=== PATIENT | female | born 1980 | race Caucasian/White ===

== ENCOUNTER → 2020-07-31 17:08 | Outpatient (BNVA) | payer SELFPAY | PROVIDERS: Family Provider Nurse Practitioner; Visit Provider Nurse Practitioner Family | DX: M25.572 Pain in left ankle and joints of left foot (principal) | CPT/HCPCS: 73630 ==

== ENCOUNTER 2020-08-28 21:03 | Emergency (ER) | payer SELFPAY ==
[2020-08-28 21:07] VITALS: BP 137/92; PULSE 107; RESP 18; TEMP 36.8; O2SAT 97; BMI 40.4
--- NOTE | 2020-08-28 21:36 | PC.NURSE ---
pt given urine cup, pt states she has not been able to use the restroom because she is scared of the pain. Pt states she has also not been able to eat or drink much.
--- NOTE | 2020-08-28 22:29 | W.ED.FEMALGU ---
HPI - Female Genitourinary General: Chief complaint: Urogenital-Female Stated complaint: YEAST INF, WORSENING SYMPTOMS Time Seen by Provider: 08/28/20 21:33 History of Present Illness: HPI Narrative: 40-year-old female patient presents to the emergency department with vaginal discharge and swelling. She reports change of detergent approximately 1 week ago. Onset of valvular swelling and edema with cloudy discharge. She reports intense itching at first but now intense pain, worse with urination. She is sexually active, one partner past 3 years. She denies flank pain, lower abdominal pain, fever or chills. States has been to her primary care provider today, prescribed fluconazole. She is also attempted [id number] cream for candidal infection. MD elicited complaint: dysuria, vaginal discharge and genital itching Pertinent past history: other (Partial hysterectomy) Onset (ago): day(s) (3) Location of symptoms: external genitalia and vaginal Severity: moderate Severity scale (1-10): 8 Quality of pain: burning and aching Consistency: constant and progressively worsening Vaginal discharge: white and thick/cheesy Vaginal bleeding: none Urinary symptoms: Dysuria Exacerbating factors: movement Relieving factors: none Associated symptoms: Reports no associated symptoms and vaginal discharge; Deny abdominal pain, headache(s) or nausea Treatment prior to arrival: other (Diflucan) Sexual activity: Yes Patient : No Review of Systems General: Reports: 10 or more systems reviewed and unremarkable except in HPI and below Const: Denies: fever(s), chills or diaphoresis Eyes: Denies: blurry vision or eye redness ENMT: Denies: throat pain, dental pain or disequilibrium Card: Denies: chest pain, palpitations or irregular heart rhythm Resp: Denies: dyspnea, productive cough, non-productive cough or wheezing GI: Denies: abdominal pain, nausea or vomiting : Reports: dysuria, genital pruritis and vaginal discharge; Denies: difficulty voiding Musc: Denies: back pain Skin/Breast: Denies: rash or pruritus Neuro: Denies: headache(s), weakness in extremities or behavioral changes Psych: Reports: anxiety and depression Jose David/Lymph: Denies: easy bruising Physical Exam Const: COMMON NORMALS: no acute distress, patient oriented x3, healthy appearing and alert GENERAL APPEARANCE: cooperative, comfortable and well hydrated HENMT: COMMON NORMALS: normocephalic, Normal external nose present and moist oral mucous membranes HEAD & SCALP: normocephalic NOSE: Normal external nose present Eye: COMMON NORMALS: Equal, round and reactive pupils present and EOMs intact bilaterally GENERAL EYE: appearance normal, both eyes and all related structures PUPIL: Yes Equal, round and reactive pupils present Neck/C-Spine: COMMON NORMALS: full ROM and no lymphadenopathy GENERAL: Yes normal visual inspection and Yes trachea midline CERVICAL SPINE: Yes cervical ROM normal Lymph: LYMPHATIC: no lymphadenopathy noted Chest: COMMONS NORMALS: normal inspection of the chest Resp: COMMON NORMALS: normal respiratory effort and clear to auscultation bilaterally AUSCULTATION: clear to auscultation bilaterally Cardio: COMMON NORMALS: regular rhythm, S1 normal heart sound present and S2 normal heart sound present RHYTHM: regular rhythm HEART SOUNDS: S1 normal heart sound present and S2 normal heart sound present GI: COMMON NORMALS: Soft to palpation and non-tender INSPECTION: Yes normal to inspection PALPATION: Yes Soft to palpation : COMMON NORMALS: Yes no CVA tenderness BLADDER/KIDNEY EXAM: Yes bladder normal to palpation and Yes no CVA tenderness EXTERNAL FEMALE EXAM: Yes normal appearance of the urethra, No Inguinal lymphadenopathy, Yes external swelling and No lesion SPECULUM EXAM - VAGINA: Yes erythematous, No laceration, Yes swelling and Yes Vaginal discharge present Vaginal discharge present: white SPECULUM EXAM - CERVIX: Yes Cervix absent BIMANUAL EXAM - VAGINA & UTERUS: Yes bladder normal to palpation BIMANUAL EXAM - ADNEXA, OTHER: Yes normal Back/Pelvis: COMMON NORMALS: no CVA tenderness and thoracic and lumbar spine normal to inspection Extremity: COMMON NORMALS: normal to inspection and capillary refill normal Neuro: COMMON NORMALS: patient oriented x3 and no focal motor deficits SENSORIUM/ORIENTATION: Yes alert Psych: COMMON NORMALS: mental status grossly normal, Normal thought process present and cooperative ACTIVITY/MOTOR BEHAVIOR: Yes appropriate eye contact THOUGHT PROCESS: Normal thought process present Skin: COMMON NORMALS: no rashes or lesions noted and turgor normal GENERAL SKIN EXAM: no rashes or lesions noted and turgor normal Course Vital Signs: Vital signs: Vital Signs Temperature 98.3 F 08/28/20 21:07 Pulse Rate 107 H 08/28/20 21:07 Respiratory Rate 18 08/28/20 21:07 Blood Pressure 137/92 11/12/20 21:07 Pulse Oximetry 97 08/28/20 21:07 MDM - Female Lab Data: Labs: Lab Results 08/28/20 Range/Units 22:15 Urine Color Yellow (Yellow) Urine Appearance Sl cloudy A (CLEAR) Urine pH 5.0 (5-7) Ur Specific Gravit y 1.020 (1.005-1.030) Urine Protein 1+ H (Negative) Urine Glucose (UA) 2+ (Normal) Urine Ketones 1+ H (Negative) Urine Blood 2+ H (Negative) Urine Nitrate Negative (Negative) Urine Bilirubin Neg (Negative) Urine Urobilinogen 1 H (Negative) mg/dL Ur Leukocyte Aura ase 2+ H (Negative) Urine RBC 0-4 H (0-2) /hpf Urine WBC 15-25 H (0-5) /hpf Ur Squamous Epith Cells 0-4 H (0-5) /hpf Amorphous Sediment Not Reportable Urine Bacteria 2+ H (NONE) /hpf Urine Mucus 2+ /hpf Discharge Plan Discharge Patient Disposition: Home Clinical Impression: Trichomoniasis, Urinary tract infection Condition: Stable Discharge Orders: Discharge Order (Routine); Ordered 08/28/20 Ordered By: Roseann Perez Discharge Diet: Usual diet Discharge Activity: Limit activity as instructed Patient Instructions: Trichomoniasis (ED), Urinary Tract Infection in Women (ED) Activity Restrictions/Additional Instructions: Return to the emergency department if you develop nausea vomiting, abdominal pain, fever or chills Culture results will be called to you if positive. Follow-up with your primary care provider next week without fail, avoid sexual activity until follow-up completed You have been treated for urinary tract infection today with Rocephin Drink lots of fluids Use Dermoplast as needed for peripain wash periarea with warm water daily - avoid soap until improved Coding Level of Care Code ED Central Service Technician for Denis Fwd Exam Comprehensive
[2020-08-28 23:13] LABS: Glucose Urine UA 2+ (Normal); Ketones Urine 1+ (Negative); Protein Urine 1+ (Negative); Urine Color Yellow (Yellow)
[2020-08-28 23:14] LABS: Add Urine Culture? Yes; Add Urine Microscopic? YES; Bacteria Urine 2+ /hpf; Bilirubin Urine Neg (Negative); Blood Urine 2+ (Negative); Leukocyte Esterase Urine 2+ (Negative); Mucus Urine 2+ /hpf; Nitrate Urine Negative (Negative); RBC Urine 0-4 /hpf (0-2); Squamous Epithelial Cell Urine 0-4 /hpf (0-5); Urobilinogen Urine 1 mg/dL (Negative); WBC Urine 15-25 /hpf (0-5)
[2020-08-28] MEDS: azithromycin 250 mg Tablet 1000 MG PO (23:49)
[2020-08-28] MEDS: metroNIDAZOLE 500 MG Tablet 2000 MG PO (23:50)
[2020-08-28] MEDS: ondansetron 4 MG Tablet PO (23:52)
[2020-08-28] MEDS: cefTRIAXone 1,000 mg SDV 1000 MG IM (23:54)
[2020-08-28 23:59] VITALS: BP 151/81; PULSE 89; RESP 18; O2SAT 98
== END 2020-08-29 | disposition home or self-care (01) ==
PROVIDERS: Emergency Provider Nurse Practitioner Family
DX: A59.9 Trichomoniasis, unspecified (principal)
CPT/HCPCS: 12345; 81001; 87070; 87077; 87086; 87106; 87186; 87205; 87210; 87591; 96372; 99281; 99283; J0696; Q0144; Q0162

== ENCOUNTER → 2022-11-25 09:28 | Outpatient (BNVA) | payer OTHER, SELFPAY | PROVIDERS: PCP Nurse Practitioner Family; Referring Provider Nurse Practitioner Family; Visit Provider Nurse Practitioner Family | DX: M79.675 Pain in left toe(s) (principal) | CPT/HCPCS: 73630 ==

== ENCOUNTER → 2023-08-17 14:06 | Outpatient (BNVA) | payer BC, MEDICAID, SELFPAY | PROVIDERS: PCP Nurse Practitioner Family; Visit Provider Emergency Medicine | DX: M25.561 Pain in right knee (principal); M54.6 Pain in thoracic spine; G89.29 Other chronic pain | CPT/HCPCS: 73562 ==

== ENCOUNTER 2023-11-11 09:19 | Day surgery (SDC) | payer BC, MEDICAID, SELFPAY ==
[2023-11-11 09:48] VITALS: BP 186/112; PULSE 92; RESP 16; TEMP 36.3; BMI 38.2
[2023-11-11] MEDS: sodium chloride 0.9% 1,000 ML 30 ML IV (09:54)
[2023-11-11 09:59] LABS: Glucose Point of Care 251 mg/dL (70-110)
--- NOTE | 2023-11-11 11:35 | ANES.PREANE2 ---
Pre-Anesthetic Assessment Height/Weight: Height 1.63 m Weight 101.151 kg Temp Pulse Resp BP O2 Del Method 97.4 F L 92 16 186/112 Room Air 11/11/23 09:48 11/11/23 09:48 11/11/23 09:48 11/11/23 09:48 11/11/23 09:48 Operation Date: 11/11/23 10:30 [place] p [id number] egd w/balloon dialation K46.9(Not Applicable) - Scout Kearney DO Familial anesthetic complications: None Was Beta Mahamed taken within 24 hours: N/A Was Clonidine taken within 24 hours: N/A Last intake: Intake Last Liquid Date 11/10/23 Last Liquid Time 23:00 Last Solid Date 11/10/23 Last Solid Time 23:00 Social Tobacco and No alcohol 1 pack(s) per day 25 pack years Exam alert, oriented x 3, clear to auscultation bilaterally and regular rate & rhythm Airway Submandibular: within normal limits Cervical ROM: within normal limits Mallampati: Class III Dentition: false History/ROS No significant history except as noted and No significant complaints Pulmonary Cough and Sleep Apnea CV/HEM Hypertension and Palpitations Urinary Tract Infection Hepatic None reported GI Gastroesophageal Reflux Disease Metabolic Diabetes Mellitus, Hyperlipidemia, Morbid Obesity and Thyroid Disease (Nodule) Musc/skel Fibromyalgia and Lower Back Pain 5 herniated discs Neuropsych Anxiety, Depression and Neuropathy Anesthetic Plan ASA status: 3 Anesthesia: Anesthesia Evaluation, General and MAC Risk of > 500 ml blood loss (7ml/kg in children): No Medications/Allergies Home Medications Medication Instructions Recorded Confirmed Last Taken Type amitriptyline 25 mg tablet 25 mg PO DAILY 09/22/20 11/09/23 11/10/23 History lisinopril 20 mg tablet 20 mg PO DAILY 09/22/20 11/09/23 11/10/23 History citalopram 40 mg tablet 40 mg PO DAILY 10/21/21 11/09/23 11/10/23 History diclofenac sodium 1 % topical gel 4 g topical QID #100 grams 10/21/21 11/09/23 11/10/23 Rx (Voltaren Arthritis Pain) gabapentin 100 mg capsule 100 mg PO TID 10/21/21 11/09/23 11/10/23 History fluticasone propionate 50 2 spray intranasal DAILY #16 grams 03/11/09/23 11/10/23 Rx mcg/actuation nasal spray,suspension (Flonase Allergy Relief) insulin degludec 100 unit/mL (3 25 unit SUBCUT DAILY 01/01/23 11/09/23 11/10/23 History mL) subcutaneous pen (Tresiba FlexTouch U-100 insulin) glipizide 10 mg tablet 40 mg PO BID 10/26/23 11/09/23 11/10/23 History pantoprazole 40 mg tablet,delayed 40 mg PO BID 6 weeks #84 tabs 10/26/23 11/09/23 11/10/23 Rx release (Protonix) methocarbamol 750 mg tablet 750 mg PO TID PRN Pain, Moderate 11/09/23 11/11/23 2 Weeks Ago History ~10/28/23 Allergies Allergy/AdvReac Type Severity Reaction Status Date / Time simvastatin Allergy ADR-Muscle Verified 11/11/23 09:47 Pain tramadol Allergy ADR-Itching Verified 11/09/23 10:08 Current Medications Generic Name Dose Route Start Last Admin Trade Name Freq PRN Reason Stop Dose Admin Sodium Chloride 1,000 mls @ 30 mls/hr 11/11/23 09:45 11/11/23 09:54 Sodium Chloride 0.9% IV 11/12/23 09:44 30 mls/hr .Q24H RICHARD Administration PFSH Anesthesia Family History Denies family history of Anesthesia complication Bleeding disorder Social History Smoking and tobacco/nicotine status: current every day tobacco/nicotine user Female Reproductive History Spontaneous abortions: No Data Anesthesia Cardiac Studies: No Data to Display
--- NOTE | 2023-11-11 12:11 | W.PM.OPSUD ---
Surgery/Procedure H&P Update DATE OF PROCEDURE: November 11, 2023 DATE H&P PERFORMED: 10/26/23 H&P UPDATE INFORMATION: I have reviewed H&P completed within last 30 days, I have examined patient prior to procedure and No changes to prior documentation PLANNED PROCEDURE: Operation Date: 11/11/23 10:30 Proposed Procedures p [id number] egd w/balloon dialation K46.9(Not Applicable) - Scout Kearney, DO
[2023-11-11 12:33] VITALS: BP 111/76; PULSE 80; RESP 12; TEMP 36.1; O2SAT 100
[2023-11-11 12:45] VITALS: BP 126/83; PULSE 86; RESP 16; O2SAT 98
--- NOTE | 2023-11-11 13:12 | ANE.PACU2 ---
Inpatient post-anesthesia follow up: Airway intact: Yes Vital signs: Temperature 97.0 F Pulse Rate 86 Respiratory Rate 16 Blood Pressure 126/83 Pulse Oximetry 98 Oxygen Delivery Me thod Room Air Oxygen Flow Rate Fraction of Inspir ed Oxygen Hydration adequate: Yes Nausea and vomiting: No Pain level: 2 Mental status: Baseline
== END 2023-11-11 13:10 | disposition home or self-care (01) ==
PROVIDERS: PCP Nurse Practitioner Family; Visit Provider Surgery
DX: R13.10 Dysphagia, unspecified (principal); K21.9 Gastro-esophageal reflux disease without esophagitis; K29.50 Unspecified chronic gastritis without bleeding; F17.210 Nicotine dependence, cigarettes, uncomplicated; F17.200 Nicotine dependence, unspecified, uncomplicated; G47.30 Sleep apnea, unspecified; I10 Essential (primary) hypertension; E11.40 Type 2 diabetes mellitus with diabetic neuropathy, unspecified; Z79.4 Long term (current) use of insulin; E78.5 Hyperlipidemia, unspecified; E66.01 Morbid (severe) obesity due to excess calories; Z68.38 Body mass index [BMI] 38.0-38.9, adult; M79.7 Fibromyalgia
CPT/HCPCS: 36416; 43239; 82962; 88305; J2704; J7030

== ENCOUNTER → 2023-11-30 10:09 | Outpatient (BNVA) | payer BC, MEDICAID, SELFPAY | PROVIDERS: PCP Nurse Practitioner Family; Referring Provider Nurse Practitioner Family; Visit Provider Podiatrist Foot & Ankle Surgery | DX: Q82.8 Other specified congenital malformations of skin; M21.611 Bunion of right foot; M21.612 Bunion of left foot; M21.621 Bunionette of right foot; M21.622 Bunionette of left foot; E11.42 Type 2 diabetes mellitus with diabetic polyneuropathy | CPT/HCPCS: 73630 ==

== ENCOUNTER → 2023-12-15 11:03 | Outpatient (BNVA) | payer BC, MEDICAID, SELFPAY | PROVIDERS: PCP Nurse Practitioner Family; Referring Provider Nurse Practitioner Family; Visit Provider Nurse Practitioner Family | DX: M54.6 Pain in thoracic spine (principal) | CPT/HCPCS: 72070 ==

== ENCOUNTER → 2024-06-05 10:27 | Outpatient (BNVA) | payer BC, MEDICAID, SELFPAY | PROVIDERS: PCP Nurse Practitioner Family; Visit Provider Podiatrist Foot & Ankle Surgery | DX: E11.42 Type 2 diabetes mellitus with diabetic polyneuropathy; Q82.8 Other specified congenital malformations of skin; M21.611 Bunion of right foot; M21.612 Bunion of left foot; M21.621 Bunionette of right foot; M21.622 Bunionette of left foot; L60.3 Nail dystrophy; Z79.4 Long term (current) use of insulin | CPT/HCPCS: 73630 ==

== ENCOUNTER → 2025-07-04 14:52 | Outpatient (BNVA) | payer BC, MEDICAID, SELFPAY | PROVIDERS: PCP Nurse Practitioner Family; Visit Provider Orthopaedic Surgery | DX: M51.24 Other intervertebral disc displacement, thoracic region (principal); G89.29 Other chronic pain | CPT/HCPCS: 72072 ==

== ENCOUNTER 2025-07-22 09:56 | Outpatient (CLI) | payer BC, MEDICAID, SELFPAY ==
--- NOTE | 2025-07-22 10:15 | MR_ITS ---
WS: [id number] MRI THORACIC SPINE noncontrast HISTORY: back pain COMPARISON: 08/06/2013 TECHNIQUE: Multiplanar sequences are performed in sagittal and axial planes. Mild increase in thoracic kyphosis. Disc spaces are narrowed. Progression of degenerative disc disease and endplate osteophytes since 2012. Signal within the cord remains normal. T1-2: Small central disc protrusion. T2-3: Normal. T3-4: Normal. T4-5: Normal. T5-6: Mild LEFT foraminal narrowing due to facet disease. T6-7: Mild facet arthritis and mild foraminal narrowing. T7-8: Very shallow RIGHT paracentral disc protrusion, mild facet arthritis and foraminal narrowing. T8-9: Very tiny central disc protrusion. Disc protrusion has decreased in size since the prior study. No contact on the cord. There is a small LEFT foraminal disc protrusion which is new. Mild LEFT foraminal stenosis. T9-10: Bilateral facet joint arthritis and mild foraminal stenosis. T10-11: Moderate bilateral facet arthritis and mild foraminal stenosis. T11-12: Normal. Paravertebral soft tissues are negative. MR/MR thoracic spin wo con* [id number] IMPRESSION: 1. Progression of degenerative disc disease and thoracic spondylosis since 3. 2. No cord compression or high-grade stenosis. 3. Previously described RIGHT paracentral disc herniation at T8-9 has decrease d in size. There is no longer disc contact on the cord. 4. New small LEFT foraminal disc protrusion at T8-9 with mild LEFT foraminal s tenosis. 5. Facet joint arthropathy and foraminal narrowing as described above.
== END 2025-07-22 09:57 | disposition home or self-care (01) ==
LOC: RAD 09:57
PROVIDERS: PCP Family Medicine; Visit Provider Orthopaedic Surgery
DX: M51.24 Other intervertebral disc displacement, thoracic region (principal); M40.204 Unspecified kyphosis, thoracic region; M47.814 Spondylosis without myelopathy or radiculopathy, thoracic region; M51.34 Other intervertebral disc degeneration, thoracic region
CPT/HCPCS: 72146